=== PATIENT | male | born 1990 | race Caucasian/White ===

== ENCOUNTER 2024-11-14 15:16 | Emergency (ER) | payer OTHER, SELFPAY ==
[2024-11-14 15:20] VITALS: BP 145/120
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
[2024-11-14 17:04] VITALS: BP 137/92
== END 2024-11-14 17:22 | disposition home or self-care (01) ==
LOC: EMR 15:16
PROVIDERS: EMERGENCY PHYSICIAN Emergency Medicine; FAMILY PHYSICIAN Internal Medicine
DX: S61.412A Laceration without foreign body of left hand, initial encounter (principal); W45.8XXA Other foreign body or object entering through skin, initial encounter
CPT/HCPCS: 99282; 12001